=== PATIENT | female | born 1965 | race Caucasian/White ===

== ENCOUNTER 2021-09-14 12:48 | Day surgery (SDC) | payer BC ==
[2021-09-14] VITALS (7 sets, daily range): BP systolic 120–156; BP diastolic 62–98
[~2021-09-14] VITALS: Ht 162.6 cm; Wt 65.9 kg
[~2021-09-14 12:48] MED LIST: CEFEPIME 2gm in D5W 50mL 50 ML IV ONE; LOSA50TA3 PO; ceFAZolin 2gm in dextrose, iso 50 ML IV ONE; famotidine 20mg tablet PO ONE; ringers solution, lacted 1,000 ML IV SCH
[2021-09-14] MEDS ORDERED: ondansetron/PF 4mg/2ml inj IV PRN (13:15)
[2021-09-14] MEDS ORDERED: hydrALAZINE 20mg/ml inj. IV PRN (13:15)
[2021-09-14] MEDS ORDERED: ringers solution, lacted 1,000 ML IV SCH (13:15)
[2021-09-14] MEDS ORDERED: morphine 2 MG/ML inj. syringe IV PRN (13:15)
[2021-09-14] MEDS ORDERED: labetalol 20mg/4ml (5mg/ml) syringe IV PRN (13:15)
[2021-09-14] MEDS ORDERED: fentaNYL/PF 50MCG/1 ML 2ML syringe IV PRN ×2 (13:15)
[2021-09-14 13:48] LABS: BASOPHILS # (AUTO) 0.1 X10'3 (0-0.2); BASOPHILS % (AUTO) 0.8 % (0-1); EOSINOPHILS # (AUTO) 0.3 X10'3 (0-0.9); EOSINOPHILS % (AUTO) 5.3 % (0-6); LYMPHOCYTES # (AUTO) 2.6 X10'3 (1.1-4.8); LYMPHOCYTES % (AUTO) 40.9 % (21-51); MEAN CORPUSCULAR HGB CONC 33.9 g/dL (33.0-36.5); MEAN CORPUSCULAR VOLUME 94.3 FL (78-98); MEAN PLATELET VOLUME 8.5 FL (7.4-10.4); MONOCYTES # (AUTO) 0.6 X10'3 (0-0.9); MONOCYTES % (AUTO) 9.7 % (2-12); NEUTROPHILS # (AUTO) 2.8 X10'3 (1.8-7.7); NEUTROPHILS % (AUTO) 43.3 % (42-75); PRE OP HEMOGLOBIN 13.2 g/dL (12.0-16.0); PRE OP PLATELET COUNT 273 X10'3 (140-440); RED BLOOD COUNT 4.14 X10'6 (4.20-5.60); RED CELL DISTRIBUTION WIDTH 12.7 % (11.5-14.5)
[2021-09-14 13:57] LABS: ALBUMIN 3.7 G/DL (3.4-5.0); ALKALINE PHOSPHATASE 82 IU/L (46-116); BLOOD UREA NITROGEN 12 MG/DL (7-18); BUN/CREATININE RATIO 16.4 (6.6-38.0); CALCIUM 8.7 MG/DL (8.5-10.1); CHLORIDE 105 MMOL/L (99-107); CREATININE 0.73 MG/DL (0.40-0.90); PRE OP ALT 27 U/L (30-65); PRE OP ANION GAP 11 (8-16); PRE OP AST 23 U/L (10-37); PRE OP BILIRUB, TOTAL 0.2 MG/DL (0.0-1.0); PRE OP GLUCOSE 80 MG/DL (70-104); PRE OP SODIUM 140 MMOL/L (135-145); TOTAL CARBON DIOXIDE 24.2 MMOL/L (24-32); TOTAL PROTEIN 7.3 G/DL (6.4-8.2); eGFR 82 ML/MIN
[2021-09-14 13:58] LABS: PRE OP POTASSIUM 4.1 MMOL/L (3.4-5.1)
[2021-09-14] MEDS ORDERED: fentaNYL/PF 50MCG/1 ML 2ML syringe ONE (14:53)
[2021-09-14] MEDS ORDERED: MIDAZolam 1 MG/ML 5ML VIAL ONE (14:54)
[2021-09-14] MEDS ORDERED: BUPIVAcaine/PF 2.5 mg/ml (0.25%) 30ml vial ONE (15:05)
[2021-09-14] MEDS ORDERED: propofol inj 20 ML IV ONE (15:21)
--- NOTE | 2021-09-14 15:41 | NUR ---
ASSUM CARE PATIENT AWAKE ALERT VSS NO DISTRESS. IV TO LWRIST INTACT IVF INFUSING WITHOUT DIFF. ON RA SAT 100%, DRESSING TO RIGHT HAND CDI +CMS TO THE RIGHT HAND AND FINGERS. CONT TO MONITOR. Addendum: 09/14/21 at 1602 by Vianey Mayo RN Amended: Links added.
[2021-09-14] MEDS: morphine 4 MG/ML inj SYRINge IV PRN ×2 (15:48→16:13)
--- NOTE | 2021-09-14 16:01 | NUR ---
PT SITTING UP IN BED VSS FARZANA PO'S DAUGHTER AT BEDSIDE, C/O PAIN TO RIGHT HAND 04/21 MED WITH DEMEROL 25MG IV. Addendum: 09/14/21 at 1602 by Vianey Mayo RN Amended: Links added.
--- NOTE | 2021-09-14 16:16 | NUR ---
PT AWAKE C/O PAIN TO RIGHT HAND 04/21 MED WITH MORPHINE 4MG IV NO OTHER CHANGES DC INSTR GIVEN TO PT AND DAUGHTER NO ?'S OR CONCERNS Addendum: 09/14/21 at 1617 by Vianey Mayo RN Amended: Links added.
--- NOTE | 2021-09-14 16:44 | NUR ---
PT MORE AWAKE ALERT STATES PAIN FREE FARZANA POS AMBULATING IN ROOM MEETS CRITERIA TO DC HOME DAUGHTER AT BEDSIDE OK TO GO HOME. Addendum: 09/14/21 at 1645 by Vianey Mayo RN Amended: Links added.
== END 2021-09-14 16:41 | disposition home or self-care (01) ==
LOC: PAS 12:48
PROVIDERS: ATTEND Orthopaedic Surgery Hand Surgery
DX: S66.120A Laceration of flexor muscle, fascia and tendon of right index finger at wrist and hand level, initial encounter (principal); J45.909 Unspecified asthma, uncomplicated; I10 Essential (primary) hypertension; Z88.2 Allergy status to sulfonamides; Z88.8 Allergy status to other drugs, medicaments and biological substances; Z72.89 Other problems related to lifestyle; Z98.890 Other specified postprocedural states; Z79.899 Other long term (current) drug therapy; Z82.49 Family history of ischemic heart disease and other diseases of the circulatory system; Z83.3 Family history of diabetes mellitus; Z83.6 Family history of other diseases of the respiratory system; W26.8XXA Contact with other sharp object(s), not elsewhere classified, initial encounter; Y93.89 Activity, other specified; Y92.89 Other specified places as the place of occurrence of the external cause; Y99.8 Other external cause status
CPT/HCPCS: 26020; 36415; 80053; 82948; 85025; A6222; J2250; J2270; J2704; J3010; J3490; Z7506; Z7512; A4215; A6449; A7000; J0692; J7120

== ENCOUNTER 2022-08-17 22:50 | Emergency (ER) | payer BC ==
[~2022-08-17] VITALS: Ht 162.6 cm; Wt 63.6 kg
[~2022-08-17 22:50] MED LIST changes: -CEFEPIME 2gm in D5W 50mL 50 ML IV ONE; -ceFAZolin 2gm in dextrose, iso 50 ML IV ONE; -famotidine 20mg tablet PO ONE; -ringers solution, lacted 1,000 ML IV SCH
[2022-08-17 23:34] LABS: BASOPHILS # (AUTO) 0.1 X10'3 (0-0.2); BASOPHILS % (AUTO) 1.1 % (0-1); EOSINOPHILS # (AUTO) 0.3 X10'3 (0-0.9); EOSINOPHILS % (AUTO) 4.7 % (0-6); HEMATOCRIT 35.9 % (35.0-45.0); HEMOGLOBIN 12.3 g/dl (12.0-16.0); LYMPHOCYTES # (AUTO) 3.2 X10'3 (1.1-4.8); LYMPHOCYTES % (AUTO) 47.1 % (21-51); MEAN CORPUSCULAR HEMOGLOBIN 32.3 PG (27.0-31.0); MEAN CORPUSCULAR HGB CONC 34.4 g/dL (33.0-36.5); MEAN CORPUSCULAR VOLUME 94.1 FL (78-98); MEAN PLATELET VOLUME 7.9 FL (7.4-10.4); MONOCYTES # (AUTO) 0.8 X10'3 (0-0.9); MONOCYTES % (AUTO) 11.5 % (2-12); NEUTROPHILS # (AUTO) 2.5 X10'3 (1.8-7.7); NEUTROPHILS % (AUTO) 35.6 % (42-75); PLATELET COUNT 246 X10'3 (140-440); RED BLOOD COUNT 3.82 X10'6 (4.20-5.60); RED CELL DISTRIBUTION WIDTH 12.5 % (11.5-14.5); WHITE BLOOD COUNT 6.9 X10'3 (4.5-11.0)
[2022-08-17 23:42] LABS: ALANINE AMINOTRANSFERASE 25 U/L (12-78); ALBUMIN 3.6 G/DL (3.4-5.0); ALBUMIN/GLOBULIN RATIO 1.1 (1.1-1.5); ALKALINE PHOSPHATASE 79 IU/L (46-116); ANION GAP 6 (8-16); ASPARTATE AMINO TRANSFERASE 19 U/L (10-37); BILIRUBIN,TOTAL 0.2 MG/DL (0.1-1.0); BLOOD UREA NITROGEN 9 MG/DL (7-18); BUN/CREATININE RATIO 12.9 (6.6-38.0); CALCIUM 8.8 MG/DL (8.5-10.1); CHLORIDE 97 MMOL/L (99-107); GLUCOSE 101 MG/DL (70-104); POTASSIUM 3.9 MMOL/L (3.5-5.1); SODIUM 132 MMOL/L (135-145); TOTAL CARBON DIOXIDE 28.8 MMOL/L (24-32); eGFR 86 ML/MIN
[2022-08-18] MEDS ORDERED: predniSONE 20 mg tablet PO ONE
[2022-08-18] MEDS ORDERED: diphenhydrAMINE 25mg capsule PO ONE
[2022-08-18] MEDS ORDERED: ipratropium/albuterol 3ml nebule NEB ONE
[2022-08-18] MEDS ORDERED: PRED20TA PO (00:03)
[2022-08-18] MEDS ORDERED: GUAI10LI14 PO (00:22)
[2022-08-18] MEDS ORDERED: LIDOcaine Viscous 15ml cup MM PRN (00:25)
[2022-08-18] MEDS ORDERED: guaiFENesin/codeine phos 10ml UD oral syrup PO ONE (00:25)
[2022-08-18 00:41] VITALS: BP 152/92
== END 2022-08-18 00:43 | disposition home or self-care (01) ==
LOC: ER 22:50
DX: J45.901 Unspecified asthma with (acute) exacerbation (principal); R05.9 Cough, unspecified; R07.89 Other chest pain; J45.909 Unspecified asthma, uncomplicated; Z88.8 Allergy status to other drugs, medicaments and biological substances; Z88.2 Allergy status to sulfonamides; Z79.899 Other long term (current) drug therapy
CPT/HCPCS: 36415; 71045; 80053; 84484; 85025; 93005; 94640; 99285; J7512; Q0163; 94760